=== PATIENT | female | born 1985 | race Asian ===

== ENCOUNTER 2017-05-08 12:21 | Day surgery (SDC) | payer OTHER ==
[~2017-05-08] VITALS: Ht 157.5 cm; Wt 88.7 kg
[~2017-05-08 12:21] MED LIST: BUPIVACAINE/PF 0.5% ONE; None per pt
[2017-05-08] MEDS ORDERED: FENTANYL PF 100 MCG/2ML ONE ×2 (13:05)
[2017-05-08] MEDS ORDERED: MIDAZOLAM 1 MG/ML, 2ML ONE (13:05)
[2017-05-08] MEDS ORDERED: ROCURONIUM 10 MG/ML,10ML ONE (13:06)
[2017-05-08] MEDS ORDERED: PROPOFOL 10 MG/ML, 20ML ONE (13:06)
[2017-05-08] MEDS ORDERED: GLYCOPYRROLATE 0.4 MG/2 ML, 2ML ONE (13:08)
[2017-05-08] MEDS ORDERED: NEOSTIGMINE 1 MG/ML, 10ML ONE (13:08)
[2017-05-08] MEDS ORDERED: ONDANSETRON 2MG/ML, 2ML ONE (13:09)
[2017-05-08] MEDS ORDERED: DEXAMETHASONE 4 MG/ML, 1ML ONE ×2 (13:09)
[2017-05-08 13:33] VITALS: BP 115/84
[2017-05-08] MEDS ORDERED: LACTATED RINGERS 1,000 ML IV SCH (13:37)
[2017-05-08 13:57] LABS: HCG UR LOT HCG7030192
[2017-05-08 14:05] LABS: HCG UR OBC PASS
[2017-05-08] MEDS ORDERED: CEFOTETAN 1 GM ONE (14:10)
[2017-05-08] MEDS ORDERED: FENTANYL PF 100 MCG/2ML IV PRN (14:30)
[2017-05-08] MEDS ORDERED: ONDANSETRON 2MG/ML, 2ML IVPush PRN (14:30)
[2017-05-08] MEDS ORDERED: ACETAMINOPHEN 325 MG TABLET PO PRN (14:30)
[2017-05-08] MEDS ORDERED: OXYcodone 5 MG/5 ML ORAL.SOL UDC PO PRN (14:30)
[2017-05-08] MEDS ORDERED: HYDROmorphone 1 MG/ML, 1ML IV PRN (14:30)
[2017-05-08] MEDS ORDERED: PROMETHAZINE 25 MG/ML, 1ML IV PRN (14:30)
[2017-05-08] MEDS ORDERED: BUPIVACAINE/PF-EPI 0.5% 1:200K IM ONE (14:31)
[2017-05-08] MEDS ORDERED: ACETAMINOPHEN 650 MG/20.3 ML UDC ONE (15:05)
[2017-05-08] MEDS ORDERED: ACETAMINOPHEN 325 MG TABLET ONE (15:06)
[2017-05-08] MEDS ORDERED: OXYcodone 5 MG/5 ML ORAL.SOL UDC ONE (15:06)
[2017-05-08] MEDS ORDERED: MEPERIDINE/PF 50 MG/ML ONE (15:06)
[2017-05-08] MEDS: MEPERIDINE/PF 25MG/0.5ML IVPush PRN ×2 (15:12→15:31)
[2017-05-08] MEDS ORDERED: KETOROLAC 30 MG/1 ML ONE (15:22)
[2017-05-08] MEDS ORDERED: KETOROLAC 30 MG/1 ML IVPush ONE (15:30)
[2017-05-08] MEDS ORDERED: OXYcodone/APAP 5/325MG TABLET PO PRN (16:30)
[2017-05-08] MEDS ORDERED: morphine SULFATE 10 MG/ML, 1ML IVPush PRN (16:30)
[2017-05-08] MEDS ORDERED: OXYcodone/APAP 5/325MG TABLET ONE (16:35)
== END 2017-05-08 17:15 ==
LOC: OUT 12:21 → EDSEX 15:30 → OUT 17:15
PROVIDERS: ATTEND Colon & Rectal Surgery
DX: K80.20 Calculus of gallbladder without cholecystitis without obstruction (principal); Z98.890 Other specified postprocedural states; Z88.1 Allergy status to other antibiotic agents
CPT/HCPCS: 47562; 81025; 88304; J1100; J1885; J2175; J2250; J2405; J2704; J2710; J3010; J3490; S0074